=== PATIENT | female | born 1980 | race Caucasian/White ===

== ENCOUNTER 2018-05-27 16:21 | Emergency (ER) | payer SELFPAY ==
--- NOTE | 2018-05-27 16:23 | EDPHY ---
H & P Time Seen by Provider: 05/27/18 16:23 HPI/ROS: HPI CHIEF COMPLAINT: Nausea and vomiting. HISTORY OF PRESENT ILLNESS: Very pleasant 38-year-old female, otherwise healthy does not take any daily medications she presents emergency room nausea vomiting. She reports she has been vomiting for the past day. Since early this morning. She woke up with nausea vomiting. Diarrhea. Denies any chest pain or shortness of breath, denies fever. She states earlier in the day she had headache but is since resolved. Denies any headache at this time. Denies chest pain. Main complaint ongoing nausea. She arrives to the emergency room hyperventilating. She is nauseous. She has dry heaving. Main complaint ongoing nausea vomiting. Past Medical History: Denies significant medical history Past Surgical History: Surgical history is significant for tubal ligation and umbilical hernia repair. Social History: Denies daily use of drugs alcohol tobacco. Family History: Noncontributory ROS REVIEW OF SYSTEMS: 10 Systems were reviewed and negative with the exception of the elements mentioned in the history of present illness. Exam Constitutional nontoxic triage nursing summary reviewed, vital signs reviewed , awake/alert. Eyes normal conjunctivae and sclera, EOMI, PERRLA. HENT normal inspection, atraumatic, moist mucus membranes, no epistaxis, neck supple/ no meningismus, no raccoon eyes. Respiratory clear to auscultation bilaterally, normal breath sounds, no respiratory distress, no wheezing. Cardiovascular rate normal, regular rhythm, no murmur, no edema, distal pulses normal. Gastrointestinal soft, non-tender, no rebound, no guarding, normal bowel sounds, no distension, no pulsatile mass. Genitourinary no CVA tenderness. Musculoskeletal no midline vertebral tenderness, full range of motion, no calf swelling, no tenderness of extremities, no meningismus, good pulses, neurovascularly intact. Skin pink, warm, & dry, no rash, skin atraumatic. Neurologic awake, alert and oriented x 3, AAOx3, moves all 4 extremities equally, motor intact, sensory intact, CN II-XII intact, normal cerebellar, normal vision, normal speech. Psychiatric normal mood/affect. Heme/Lymph/Immune no lymphadenopathy. Differential Diagnosis: Includes but is not limited to in a particular order dehydration, electrolyte disturbance, acute nausea vomiting, gastritis, colitis , bowel obstruction, appendicitis, infection, UTI, . Medical Decision Making: Plan for this patient IV establishment, IV fluid bolus 2 L normal saline, basic blood work, IV Phenergan for nausea, IV Benadryl for nausea, urinalysis, re-evaluate. Re-evaluation: 1902: Patient re-evaluated this time resting comfortably abdomen is soft nontender. She feels much better after 2 L normal saline, as well as IV Benadryl IV Ativan IV Phenergan. Feeling much better. Nausea is well controlled she p.o. Challenge well here. Clinically most likely has some GI illness causing vomiting. We discussed return precautions he understands return emergency room she develops worsening abdominal pain, fever, vomiting. We did not perform CT imaging today as her abdomen is soft nontender I think appendicitis is very unlikely her blood work has been reviewed electrolytes appropriate, white count is normal. Urine does not indicate any UTI. Return precautions discussed with her and her at bedside. They are comfortable this plan she understands. Source: Patient - Personal History Tetanus Vaccine Date: 2010 - Medical/Surgical History Hx Asthma: Yes Hx Chronic Respiratory Disease: No Hx Diabetes: No Hx Cardiac Disease: No Hx Renal Disease: No Hx Cirrhosis: No Hx Alcoholism: No Hx HIV/AIDS: No Hx Splenectomy or Spleen Trauma: No Other PMH: ovarian cyst, blood clot in arm, umbilical hernia repair - Social History Smoking Status: Never smoked Constitutional: Initial Vital Signs Temperature (C) 36.4 C 05/27/18 16:23 Heart Rate 60 05/27/18 16:23 Respiratory Rate 22 H 05/27/18 16:23 Blood Pressure 113/81 H 05/27/18 16:23 O2 Sat (%) 100 05/27/18 16:23 O2 Delivery Mode Room Air Allergies/Adverse Reactions: egg [Egg] Allergy (Verified 01/19/16 17:06) Abdominal Cramping Home Medications: Medication Instructions Recorded Zofran 01/19/16 Promethazine HCl 25 mg PO Q6-8PRN PRN #7 tablet 05/27/18 Medical Decision Making - Data Points Laboratory Results: 05/27/18 05/27/18 05/27/18 16:43 16:35 16:35 POC Sodium 141 mEq/L mEq/L (135-145) POC Potassium 3.8 mEq/L mEq/L (3.3-5.0) POC Chloride 106.0 mEq/L mEq/L (97-110) POC Total CO2 21 mEq/L L mEq/L (22-31) POC BUN 11 mg/dL mg/dL (7-23) POC Creatinine 0.7 mg/dL mg/dL (0.6-1.0) POC Glucose 141 mg/dL H mg/dL (70-100) POC Calcium 10.2 mg/dL mg/dL (8.5-10.4) POC Total Bilirubin 1.0 mg/dL mg/dL (0.1-1.4) Total Bilirubin 0.9 mg/dL mg/dL (0.1-1.4) Conjugated Bilirubin 0.3 mg/dL mg/dL (0.0-0.5) Unconjugated Bilirubin 0.6 mg/dL mg/dL (0.0-1.1) POC AST 27 IU/L IU/L (14-46) AST 25 IU/L IU/L (14-46) POC ALT 17 IU/L IU/L (9-52) ALT 20 IU/L IU/L (9-52) POC Alk Phosphatase 76 IU/L IU/L (38-126) Alkaline Phosphatase 95 IU/L IU/L (38-126) POC Total Protein 8.0 g/dL g/dL (6.3-8.2) Total Protein 8.1 g/dL g/dL (6.3-8.2) POC Albumin 4.8 g/dL g/dL (3.5-5.0) Albumin 4.6 g/dL g/dL (3.5-5.0) Lipase 81 IU/L IU/L (23-300) Beta HCG, Qual NEGATIVE Medications Given: Discontinued Medications Diphenhydramine HCl (Benadryl Injection) 25 mg IVP EDNOW ONE Stop: 05/27/18 16:34 Last Admin: 05/27/18 16:38 Dose: 25 mg Diphenhydramine HCl (Benadryl Injection) 25 mg IVP EDNOW ONE Stop: 05/27/18 17:01 Last Admin: 05/27/18 17:08 Dose: 25 mg Sodium Chloride (Ns) 1,000 mls @ 0 mls/hr IV EDNOW ONE; Wide Open PRN Reason: Protocol Stop: 05/27/18 16:28 Last Admin: 05/27/18 16:35 Dose: 1,000 mls Sodium Chloride (Ns) 1,000 mls @ 0 mls/hr IV EDNOW ONE; Wide Open PRN Reason: Protocol Stop: 05/27/18 16:28 Last Admin: 05/27/18 17:08 Dose: 1,000 mls Lorazepam (Ativan Injection) 0.5 mg IVP EDNOW ONE Stop: 05/27/18 17:01 Last Admin: 05/27/18 17:08 Dose: 0.5 mg Promethazine HCl (Phenergan) 12.5 mg IVP EDNOW ONE Stop: 05/27/18 16:28 Last Admin: 05/27/18 16:36 Dose: 12.5 mg Point of Care Test Results: CBC CBC Collection Date 05/27/18 CBC Collection Time 16:35 WBC 13.3 RBC 4.81 HGB 14.6 HCT 40.5 PLT 311 Neut # 12.4 Neut 93.4 LYMPH # 0.7 LYMPH 5.3 Other WBC # 0.2 Other WBC 1.3 MCV 84.2 Chemistry 05/27/18 16:43 POC Sodium 141 mEq/L mEq/L (135-145) POC Potassium 3.8 mEq/L mEq/L (3.3-5.0) POC Chloride 106.0 mEq/L mEq/L (97-110) POC Total CO2 21 mEq/L L mEq/L (22-31) POC BUN 11 mg/dL mg/dL (7-23) POC Creatinine 0.7 mg/dL mg/dL (0.6-1.0) POC Glucose 141 mg/dL H mg/dL (70-100) POC Calcium 10.2 mg/dL mg/dL (8.5-10.4) POC Total Bilirubin 1.0 mg/dL mg/dL (0.1-1.4) POC AST 27 IU/L IU/L (14-46) POC ALT 17 IU/L IU/L (9-52) POC Alk Phosphatase 76 IU/L IU/L (38-126) POC Total Protein 8.0 g/dL g/dL (6.3-8.2) POC Albumin 4.8 g/dL g/dL (3.5-5.0) Urine Dip Collection Date 05/27/18 Collection Time 18:50 Specific [place] (1.002-1.030) 1.030 PH (5.0-7.5) 6.0 Leukocytes (Negative) Negative Nitrites (Negative) Negative Protein (Negative) 1+ Glucose (Negative) Negative Ketones (Negative) 2+ Urobilnogen (0.2-1.0 EU) 0.2 Bilirubin (Negative) Negative Blood (Negative) Negative Departure - Departure Disposition: Home, Routine, Self-Care Clinical Impression: Vomiting Qualifiers: Vomiting type: unspecified Vomiting Intractability: non-intractable Nausea presence: with nausea Qualified Code(s): R11.2 - Nausea with vomiting, unspecified Condition: Good Instructions: Acute Nausea and Vomiting (ED) Additional Instructions: 1. [place] diet over the next 24-48 hours no spicy fatty greasy foods. 2. Return emergency room if worsening symptoms Prescriptions: Promethazine HCl 25 mg PO Q6-8PRN PRN #7 tablet PRN Reason: Nausea/Vomiting, Use 1st
[2018-05-27] MEDS ORDERED: PROMETHAZINE HCL 25 MG/ML INJ IVP ONE (16:27)
[2018-05-27] MEDS ORDERED: NS 1,000 ML IV ONE ×2 (16:27)
[2018-05-27] MEDS ORDERED: LORazepam 2 MG/ML INJ IVP ONE (17:00)
[2018-05-27] MEDS ORDERED: LORazepam 2 MG/ML INJ ONE (17:31)
[2018-05-27] MEDS ORDERED: PROMETHAZINE HCL 25 MG TAB ONE (18:50)
[2018-05-27] MEDS ORDERED: PROMETHAZINE 25 MG PREPACK #4 BTL TAKEHOME ONE ×2 (19:13→19:31)
[2018-05-27 19:41] VITALS: BP 117/64
== END 2018-05-27 19:40 | disposition home or self-care (01) ==
LOC: CED 16:21
DX: R11.2 Nausea with vomiting, unspecified (principal); E86.9 Volume depletion, unspecified
CPT/HCPCS: 80053-PO; 80076-PO; 96374; J1200; J2060; J2550

== ENCOUNTER 2018-07-12 04:00 | Emergency (ER) | payer SELFPAY ==
[2018-07-12] MEDS ORDERED: ONDANSETRON 4 MG/2 ML VIAL IVP ONE (04:14)
[2018-07-12] MEDS ORDERED: LORazepam 0.5 MG TAB SL ONE (04:33)
[2018-07-12] MEDS ORDERED: NS 1,000 ML IV ONE ×2 (04:35)
[2018-07-12] MEDS ORDERED: PROMETHAZINE HCL 25 MG/ML INJ IVP ONE ×2 (04:37→06:22)
[2018-07-12] MEDS ORDERED: PANTOPRAZOLE SODIUM 40 MG VIAL IVP ONE (06:22)
--- NOTE | 2018-07-12 06:25 | EDPHY ---
H & P Stated Complaint: Nausea, vomiting, diarrhoea, back pain-3 days. Source: Patient - Personal History LMP (Females 10-55): 15-21 Days Ago Current Tetanus/Diphtheria Vaccine: Yes Current Tetanus Diphtheria and Acellular Pertussis (TDAP): Yes Tetanus Vaccine Date: 2010 - Medical/Surgical History Hx Asthma: Yes Hx Chronic Respiratory Disease: No Hx Diabetes: No Hx Cardiac Disease: No Hx Renal Disease: No Hx Cirrhosis: No Hx Alcoholism: No Hx HIV/AIDS: No Hx Splenectomy or Spleen Trauma: No Other PMH: ovarian cyst, blood clot in arm due to IV, umbilical hernia repair, asthma, tubal ligation, kidney stone - Family History Significant Family History: No pertinent family hx - Social History Smoking Status: Former smoker Alcohol Use: None Drug Use: None Time Seen by Provider: 07/12/18 04:19 HPI/ROS: CHIEF COMPLAINT: Nausea and vomiting with diarrhea HISTORY OF PRESENT ILLNESS: Approximately 48 hr ago she 1st awoke from a sound sleep with the illness. That particular 24. Was with approximately 10 episodes of diarrhea of formed brown nature without any blood. There is also moderate amounts of vomiting. The vomiting was bilious in nature. There really was no abdominal pain. Yesterday, she started feeling better, whereby there is no more diarrhea or vomiting. Thus by 4:00 p.m. She took some soup and went to bed. However she woke up again around 1-2 in the morning with repetitive episodes of vomiting with minimal diarrhea. The vomiting this point had some streaks of brown it. There is minimal diarrhea at this point. Two of the 3 children at home are sick with diarrhea although they were ill after she started. No recent exposure. No travel outside the country. No antibiotics. She reports using a single last leftover Zofran at home and was able keep it down as well as a Phenergan just this morning. Further, in December of 2015 she failed management here in the urgent care which consisted of IV Reglan and Phenergan having subsequently admitted at the nearby hospital, [facility] for 3 days without any specific diagnosis. REVIEW OF SYSTEMS: Constitutional: No fever, no chills. Eyes: No discharge ENT: Dry membranes. Cardiovascular: No chest pain, no palpitations. Respiratory: No cough, shortness of breath, or wheezing. Gastrointestinal: See above Genitourinary: There is no dysuria frequency. However she does have bilateral achiness in her sides. Musculoskeletal: Bilateral achiness in the sides Skin: No rashes. Neurological: No headache. [A 10 system review of systems was performed and is negative except for the noted findings in the HPI. (Sherif Gresham) - Physical Exam Exam: General Appearance: Alert, mild distress with repetitive retching and foamy yellow material in the basin. At that point when she was max retching she became diaphoretic. Afebrile. Normal phonation. No respiratory distress. Eyes: Pupils equal and round no pallor or injection. No icterus ENT, Mouth: Mucous membranes [moderately dry] Pharynx without erythema or exudate. TM Clear. Neck: No adenopathy. Supple. No JVD. Trachea in midline. Respiratory: There are no retractions, lungs are clear to auscultation. Cardiovascular: Regular rate and rhythm. Abdomen: Soft and nontender, no masses, bowel sounds normal. No CVA tenderness. Neurological: Ox3. No motor weakness. Sensation intact. Gait nl. Skin: Warm and dry, no rashes. Musculoskeletal: No joint swelling. Extremities: No edema. Homans sign negative. No cords. Psychiatric: Normal affect. [Patient is oriented X 3.] [There is no agitation ] (Sherif Gresham) Constitutional: Initial Vital Signs Temperature (C) 36.9 C 07/12/18 04:10 Heart Rate 81 07/12/18 04:10 Respiratory Rate 20 07/12/18 04:10 Blood Pressure 103/74 07/12/18 04:10 O2 Sat (%) 97 07/12/18 04:10 O2 Delivery Mode Room Air Allergies/Adverse Reactions: egg [Egg] Allergy (Verified 07/12/18 04:02) Abdominal Cramping Home Medications: Medication Instructions Recorded Zofran 01/19/16 Promethazine HCl 25 mg PO Q6-8PRN PRN #7 tablet 05/27/18 Ondansetron Odt [Zofran Odt 4 mg 4 mg PO Q4 PRN #12 tab 07/12/18 (*)] Medical Decision Making ED Course/Re-evaluation: I assumed care patient at 7:00 a.m.. On re-evaluation patient was feeling slightly better, with resolution of her akesthesia, and less nauseated but did say she thought she needed more anti nausea medicine. Her heart rate was noted to be up slightly. Given her persistent symptoms and tachycardia I elected to check her electrolytes. At additional dose of Benadryl and Haldol was ordered for her nausea and vomiting, but we lost IV access when drawing the blood for the lab work. On re-evaluation the patient because her nausea was improved she was willing to try oral fluids. On abdominal exam the patient's abdomen is soft , nondistended nontender. Patient denies marijuana use. Labs were noted for slightly low bicarb is slightly low chloride. Patient had received 2 L of normal saline. Urine was positive for ketones but no evidence of blood or infection. After receiving oral Benadryl on some ice water the pace at vomited again. She was ever given a dose of IM Haldol. On re-evaluation her nausea had improved. She was declining to try oral fluids again but said she was ready to go home. This point there is no evidence of significant surgical intra-abdominal process and patient has been rehydrated. We discussed home care return precautions including but not limited to inability to take fluids or medications. Patient is encouraged to come back if she is not improving or getting worse. Patient and her brother understand agreeable to this plan. (Tu Velazqueza) Initially she was difficult to start an IV on. Thereby she was given Ativan 0 5 mg sublingual in view of her being so petite at 4 ft 11. Subsequent months an IV established she was given 2 L of fluids as well as Benadryl 25 mg and Phenergan 12.5 mg. However, she continued to be nauseated. She reported having trouble sitting still which I attributed to the Phenergan however she attributed to the Benadryl. She is given a 2nd round of the Phenergan 12.5 mg. She was moderately sedated at that point in time. She continues to feel agitated and difficult to get settled. We discussed having a little bit more Ativan 0.5 mg in hopes to help things. Case discussed with oncoming physician at 7:00 a.m. Who assumed care (Sherif Gresham) Differential Diagnosis: Differential diagnosis includes, but is not limited to: Gastroenteritis, dehydration, diverticulitis, hepatitis, pancreatitis, renal colic, kidney stones, ureterolithiasis, cholecystitis, appendicitis, gastritis, mesenteric adenitis, food poisoning, bacterial dysentery. (Sherif Gresham) - Data Points Medications Given: Discontinued Medications Diphenhydramine HCl (Benadryl Injection) 25 mg IVP EDNOW ONE Stop: 07/12/18 04:41 Last Admin: 07/12/18 05:05 Dose: 25 mg Diphenhydramine HCl (Benadryl) 50 mg PO EDNOW ONE Stop: 07/12/18 08:09 Last Admin: 07/12/18 08:11 Dose: 50 mg Haloperidol Lactate (Haldol Injection) 2.5 mg IM Q6HRS PRN PRN Reason: Agitation Stop: 01/08/19 08:44 Last Admin: 07/12/18 08:53 Dose: 2.5 mg Sodium Chloride (Ns) 1,000 mls @ 0 mls/hr IV EDNOW ONE; As Directed PRN Reason: Protocol Stop: 07/12/18 04:36 Last Admin: 07/12/18 05:05 Dose: 1,000 mls Sodium Chloride (Ns) 1,000 mls @ 0 mls/hr IV EDNOW ONE; As Directed PRN Reason: Protocol Stop: 07/12/18 04:36 Last Admin: 07/12/18 04:49 Dose: 1,000 mls Lorazepam (Ativan) 0.5 mg SL EDNOW ONE Stop: 07/12/18 04:34 Last Admin: 07/12/18 04:35 Dose: 0.5 mg Ondansetron HCl (Zofran) 4 mg IVP EDNOW ONE Stop: 07/12/18 04:15 Last Admin: 07/12/18 04:49 Dose: 4 mg Pantoprazole Sodium (Protonix) 40 mg IVP EDNOW ONE Stop: 07/12/18 06:23 Last Admin: 07/12/18 06:27 Dose: 40 mg Promethazine HCl (Phenergan) 12.5 mg IVP ONCE ONE Stop: 07/12/18 04:38 Last Admin: 07/12/18 05:39 Dose: 12.5 mg Promethazine HCl (Phenergan) 12.5 mg IVP ONCE ONE Stop: 07/12/18 06:23 Last Admin: 07/12/18 06:26 Dose: 12.5 mg Point of Care Test Results: Chemistry 07/12/18 07:36 POC Sodium 140 mEq/L mEq/L (135-145) POC Potassium 3.5 mEq/L mEq/L (3.3-5.0) POC Chloride 112.0 mEq/L H mEq/L (97-110) POC Total CO2 20 mEq/L L mEq/L (22-31) POC BUN 9 mg/dL mg/dL (7-23) POC Creatinine 0.8 mg/dL mg/dL (0.6-1.0) POC Glucose 108 mg/dL H mg/dL (70-100) POC Calcium 9.1 mg/dL mg/dL (8.5-10.4) POC Total Bilirubin 0.8 mg/dL mg/dL (0.1-1.4) POC AST 23 IU/L IU/L (14-46) POC ALT 14 IU/L IU/L (9-52) POC Alk Phosphatase 63 IU/L IU/L (38-126) POC Total Protein 6.3 g/dL g/dL (6.3-8.2) POC Albumin 3.5 g/dL g/dL (3.5-5.0) Urine Dip Collection Date 07/12/18 Collection Time 06:23 Specific [place] (1.002-1.030) 1.025 PH (5.0-7.5) 6.0 Leukocytes (Negative) Negative Nitrites (Negative) Negative Protein (Negative) 1+ Glucose (Negative) Negative Ketones (Negative) 2+ Urobilnogen (0.2-1.0 EU) 0.2 Bilirubin (Negative) Test Not Performed Blood (Negative) Trace Departure - Departure Disposition: Home, Routine, Self-Care Clinical Impression: Nausea & vomiting Qualifiers: Vomiting type: unspecified Vomiting Intractability: non-intractable Qualified Code(s): R11.2 - Nausea with vomiting, unspecified Condition: Good Instructions: Acute Nausea and Vomiting (ED) Additional Instructions: You were seen by Dr. Sapphire Velazquez today. We have treated you for nausea and vomiting today. You may continue to take Zofran 4 mg every 8 hr as needed for nausea and vomiting. You had a reaction to Phenergan. If the symptoms of restlessness, discomfort and heebie-jeebies continue at home, you may take Benadryl 25 mg by mouth every 4 hr. Please follow up with her primary care physician. Return for any worsening, no improvement or new concerns. Referrals: NONE *PRIMARY CARE P,. [Unknown] - As per Instructions Prescriptions: Ondansetron Odt [Zofran Odt 4 mg (*)] 4 mg PO Q4 PRN #12 tab PRN Reason: Nausea and vomiting
[2018-07-12] MEDS ORDERED: HALOPERIDOL LACT 5 MG/ML INJ IVP ONE (07:10)
[2018-07-12] MEDS ORDERED: diphenhydrAMINE 25 MG CAP PO ONE (08:08)
[2018-07-12] MEDS ORDERED: HALOPERIDOL LACT 5 MG/ML INJ IM PRN (08:45)
[2018-07-12 09:51] VITALS: BP 126/80
== END 2018-07-12 09:48 | disposition home or self-care (01) ==
LOC: CED 04:00
DX: R11.2 Nausea with vomiting, unspecified (principal); E86.9 Volume depletion, unspecified
CPT/HCPCS: 80053-PO; 96374; J1200; J1630; J2405; J2550

== ENCOUNTER 2018-09-05 20:43 | Emergency (ER) | payer OTHER ==
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
[2018-09-05] MEDS ORDERED: NS 1,000 ML IV ONE ×2 (21:06→23:08)
[2018-09-05] MEDS ORDERED: LORazepam 2 MG/ML INJ IVP ONE ×2 (21:29→22:06)
[2018-09-05] MEDS ORDERED: HALOPERIDOL LACT 5 MG/ML INJ IVP ONE (21:30)
--- NOTE | 2018-09-05 22:34 | CPEKG ---
Test Reason : OPEN Blood Pressure : / mmHG Vent. Rate : 068 BPM Atrial Rate : 060 BPM P-R Int : 111 ms QRS Dur : 075 ms QT Int : 393 ms P-R-T Axes : 069 059 058 degrees QTc Int : 418 ms Sinus rhythm Confirmed by Sherif Gresham ([id number]) on 09/05/2018 10:34:02 PM Referred By: Sherif Gresham Confirmed By:Sherif Gresham
[2018-09-05] MEDS ORDERED: PROMETHAZINE 25 MG PREPACK #4 BTL TAKEHOME ONE (22:54)
[2018-09-05] MEDS ORDERED: LORAZEPAM 1 MG PREPACK#4 BTL TAKEHOME ONE (22:54)
[2018-09-06 00:36] VITALS: BP 111/74
== END 2018-09-06 00:36 | disposition home or self-care (01) ==
LOC: CED 20:43
DX: G43.A1 Cyclical vomiting, in migraine, intractable (principal)
CPT/HCPCS: 80048-ER; 83605-ER; 96361-ER; 96374-ER; 96375-ER; 96376-ER; 99284-ER; J1200; J1630; J2060

== ENCOUNTER 2018-09-30 20:12 | Emergency (ER) | payer SELFPAY, OTHER | END 2018-09-30 23:06 | disposition home or self-care (01) | LOC: CED 20:12 ==

== ENCOUNTER 2018-10-02 22:59 | Emergency (ER) | payer SELFPAY ==
[2018-10-02] MEDS ORDERED: NS 1,000 ML IV ONE (23:20)
[2018-10-02] MEDS ORDERED: LORazepam 2 MG/ML INJ IVP ONE (23:58)
[2018-10-02] MEDS ORDERED: HALOPERIDOL LACT 5 MG/ML INJ IVP ONE (23:58)
[2018-10-03] MEDS ORDERED: ONDANSETRON DISINTEGRATING 4 MG TAB PO ONE (01:20)
[2018-10-03] MEDS ORDERED: POTASSIUM CL 20 MEQ/15 ML UDCUP PO ONE (01:21)
[2018-10-03] MEDS ORDERED: ONDANSETRON 4MG PREPACK#2 BTL TAKEHOME ONE (01:42)
--- NOTE | 2018-10-03 01:47 | EDPHY ---
H & P Stated Complaint: N/V/D x3 days Time Seen by Provider: 10/02/18 23:06 HPI/ROS: CC: n/v/d x 3 days HPI: This 38-year-old female with past medical history of cyclic vomiting of unknown origin presents today with her complaining of nausea, vomiting and a few episodes of diarrhea over the last 3 days. She has been taking Phenergan and Zofran without significant relief. It will help for short time but then the symptoms were return. She feels like she has to vomit every time she has anything to eat or drink. She has an aching epigastric pain that she rates it 4/10 at rest but it increases to 7/10 after oral intake. She denies fever but has had some chills. The diarrhea is nonbloody and she has not noticed blood in the emesis. She has not seen a carpenter rough and states she does not use marijuana on a regular basis and no etiology has been identified for the cyclic vomiting. No ill contacts. REVIEW OF SYSTEMS: Constitutional: No fever. Eyes: No discharge. ENT: No sore throat. Respiratory: No cough, no shortness of breath. Cardiac: No chest pain, no palpitations. Gastrointestinal: Mild suprapubic discomfort. See HPI. Genitourinary: No dysuria Musculoskeletal: No back pain. Skin: No rashes. Neurological: No headache. Source: Patient, Family - Personal History LMP (Females 10-55): 15-21 Days Ago Current Tetanus/Diphtheria Vaccine: Yes Current Tetanus Diphtheria and Acellular Pertussis (TDAP): Yes Tetanus Vaccine Date: 2010 - Medical/Surgical History PMH: Past medical history includes dermoid cyst of her right ovary, DVT right arm, asthma, cyclic vomiting syndrome. Past surgical history includes tubal ligation and repair of umbilical hernia. Family history includes her mother being alive at age 57 with a history of breast cancer, depression and migraine headaches. Her father is at the age of 60 and had congestive heart failure, migraine headaches, depression, chronic pain and bipolar disorder. No known drug allergies Medications include occasional albuterol Primary care provider is the Carla Dejesus and she has an appointment at 10: 00 a.m. On Monday of this week. Hx Asthma: Yes Hx Chronic Respiratory Disease: No Hx Diabetes: No Hx Cardiac Disease: No Hx Renal Disease: No Hx Cirrhosis: No Hx Alcoholism: No Hx HIV/AIDS: No Hx Splenectomy or Spleen Trauma: No Other PMH: ovarian cyst, blood clot in arm due to IV, umbilical hernia repair, asthma, tubal ligation, kidney stone - migraine, typically she takes ibuprofen. - Social History Smoking Status: Former smoker Additional Social History: The patient is . She denies tobacco use. She has occasional alcohol and occasionally uses marijuana. Her last marijuana use it was 2 weeks ago. - Physical Exam Exam: General Appearance: Alert, mild distress. Eyes: Pupils equal and round no pallor or injection. ENT, Mouth: Mucous membranes are moist. Respiratory: There are no retractions, lungs are clear to auscultation. Cardiovascular: Regular rate and rhythm. Gastrointestinal: Abdomen is soft with mild epigastric and suprapubic tenderness. No masses. No rebound, guarding, or rigidity. Bowel sounds normal. Neurological: Awake and alert, sensory and motor exams grossly normal. Skin: Warm and dry, no rashes. Musculoskeletal: Neck is supple and nontender. Extremities are symmetrical, full range of motion. Psychiatric: Patient is oriented X 3, there is no agitation. DIFFERENTIAL DIAGNOSIS: After history and physical exam differential diagnosis was considered for but not limited to and in no particular order: [Cyclic vomiting syndrome, viral syndrome, gastroenteritis, cholecystitis, biliary colic , pancreatitis, bowel obstruction, appendicitis, , food-borne illness, dehydration, electrolyte disorder.] Constitutional: Initial Vital Signs Temperature (C) 98.4 F 10/02/18 23:09 Heart Rate 75 10/02/18 23:09 Respiratory Rate 18 10/02/18 23:09 Blood Pressure 125/67 H 10/02/18 23:09 O2 Sat (%) 98 10/02/18 23:09 O2 Delivery Mode Room Air Allergies/Adverse Reactions: avocado Allergy (Verified 10/02/18 23:11) egg [Egg] Allergy (Verified 10/02/18 23:00) Abdominal Cramping Home Medications: Medication Instructions Recorded Albuterol 10/02/18 Medical Decision Making ED Course/Re-evaluation: The patient was seen examined. Vital signs reviewed. Prior charts reviewed. She was given a L of IV fluids as well as Benadryl 25 mg IV push, Haldol 2.5 mg IV push, and Ativan 1 mg IV push. This quickly alleviated her symptoms. Her complete blood count, comprehensive metabolic panel, lipase, lactic acid, urine and UCG were negative with the exception of a slightly low potassium (3.2) on the chemistry panel. The patient was advised to increase potassium containing foods in her diet. She was advised to follow up with her primary care provider and consider a gastroenterology consult. I see no need for imaging this evening but the patient was advised to return to the emergency room should symptoms change or worsen as discussed. She was given a Nymirumfran take-home pack to use as directed. - Data Points Laboratory Results: Laboratory Results 10/02/18 23:33 Medications Given: Discontinued Medications Diphenhydramine HCl (Benadryl Injection) 25 mg IVP EDNOW ONE Stop: 10/02/18 23:59 Last Admin: 10/03/18 00:10 Dose: 25 mg Haloperidol Lactate (Haldol Injection) 2.5 mg IVP EDNOW ONE Stop: 10/02/18 23:59 Last Admin: 10/03/18 00:10 Dose: 2.5 mg Sodium Chloride (Ns) 1,000 mls @ 0 mls/hr IV ONCE ONE; Wide Open PRN Reason: Protocol Stop: 10/02/18 23:21 Last Admin: 10/02/18 23:31 Dose: 1,000 mls Lorazepam (Ativan Injection) 1 mg IVP EDNOW ONE Stop: 10/02/18 23:59 Last Admin: 10/03/18 00:10 Dose: 1 mg Ondansetron HCl (Zofran Odt) 4 mg PO EDNOW ONE Stop: 10/03/18 01:21 Last Admin: 10/03/18 01:24 Dose: 4 mg Ondansetron HCl (Zofran Odt 4 Mg Prepack#2) 1 btl TAKEHOME EDNOW ONE Stop: 10/03/18 01:43 Last Admin: 10/03/18 02:02 Dose: 1 btl Potassium Chloride (Potassium Chloride Oral Liquid) 20 meq PO EDNOW ONE Stop: 10/03/18 01:22 Last Admin: 10/03/18 01:43 Dose: Not Given Point of Care Test Results: CBC CBC Collection Date 10/02/18 CBC Collection Time 23:32 WBC 10.63 RBC 5.27 HGB 15.3 HCT 43.8 PLT 175 Neut # 8.17 Neut 76.8 LYMPH # 1.52 LYMPH 14.3 MCV 83.1 Chemistry 10/03/18 10/03/18 01:00 00:27 POC Sodium 138 mEq/L mEq/L 135 mEq/L mEq/L (135-145) (135-145) POC Potassium 2.9 mEq/L L mEq/L 2.6 mEq/L L* mEq/L (3.3-5.0) (3.3-5.0) POC Chloride 103 mEq/L mEq/L 106.0 mEq/L mEq/L (97-110) (97-110) POC Total CO2 23 mEq/L mEq/L 24 mEq/L mEq/L (22-31) (22-31) POC BUN < 3 mg/dL L mg/dL 5 mg/dL L mg/dL (7-23) (7-23) POC Creatinine 0.7 mg/dL mg/dL 0.9 mg/dL mg/dL (0.6-1.0) (0.6-1.0) POC Glucose 98 mg/dL mg/dL 103 mg/dL H mg/dL (70-100) (70-100) POC Calcium 9.5 mg/dL mg/dL (8.5-10.4) POC Total Bilirubin 0.8 mg/dL mg/dL (0.1-1.4) POC AST 21 IU/L IU/L (14-46) POC ALT 10 IU/L IU/L (9-52) POC Alk Phosphatase 58 IU/L IU/L (38-126) POC Total Protein 6.4 g/dL g/dL (6.3-8.2) POC Albumin 3.8 g/dL g/dL (3.5-5.0) Blood Gas/Lactic Acid-Arterial 10/03/18 10/03/18 00:32 00:52 POC Blood Source VENOUS VENOUS Blood Gas/Lactic Acid-Venous 10/03/18 10/03/18 00:52 00:32 POC VBG pH 7.48 H 7.47 H (7.31-7.42) (7.31-7.42) POC VBG pCO2 30 mmHg L mmHg 29 mmHg L mmHg (40-44) (40-44) POC VBG pO2 115 mmHg H mmHg 105 mmHg H mmHg (35-40) (35-40) POC VBG HCO3 22 mEq/L mEq/L 21 mEq/L L mEq/L (22-26) (22-26) POC VBG Total CO2 23 mEq/L mEq/L 22 mEq/L mEq/L (21-27) (21-27) POC VBG Base Excess -2.0 mEq/L mEq/L -2.0 mEq/L mEq/L (-2.5-2.5) (-2.5-2.5) POC Mix VBG O2 Sat 99 % H % 98 % H % (65-75) (65-75) POC Lactic Acid Pal 1.5 mmol/L D mmol/L 1.2 mmol/L D mmol/L (0.7-2.1) (0.7-2.1) ISTAT H&H 10/03/18 01:00 POC Hgb 11.2 gm/dL L gm/dL (12.6-16.3) POC Hct 33 % L % (38-47) Urine Collection Date 10/03/18 Collection Time 00:38 HCG Results Negative Urine Dip Collection Date 10/03/18 Collection Time 00:38 Specific [place] (1.002-1.030) 1.010 PH (5.0-7.5) 7.0 Leukocytes (Negative) Negative Nitrites (Negative) Negative Protein (Negative) Negative Glucose (Negative) Negative Ketones (Negative) Negative Urobilnogen (0.2-1.0 EU) 0.2 Bilirubin (Negative) Negative Blood (Negative) Negative Departure - Departure Disposition: Home, Routine, Self-Care Clinical Impression: Nausea & vomiting, Hypokalemia, gastrointestinal losses Condition: Good Instructions: Hypokalemia (ED), Acute Nausea and Vomiting (ED) Additional Instructions: Follow up with your primary care provider within the next few days. Ask if a referral to a carpenter rough would be reasonable at this time due to multiple episodes/ER visits for nausea and vomiting. Remember to increase the potassium containing foods in your diet for the next few days. Return to the ER if symptoms change or worsen or any other concerns. Referrals: Patient,NotPresent [Primary Care Provider] - As per Instructions
[2018-10-03 02:07] VITALS: BP 116/72
== END 2018-10-03 02:07 | disposition home or self-care (01) ==
LOC: CED 22:59
DX: R11.2 Nausea with vomiting, unspecified (principal); E87.6 Hypokalemia; E86.9 Volume depletion, unspecified; Z87.891 Personal history of nicotine dependence
CPT/HCPCS: 80053-ER; 82435-PO; 82565-PO; 82947-PO; 83605-ER; 84132-PO; 84295-PO; 84520-PO; 85014-ER; 96361-ER; 96374-ER; 96375-ER; 99284-ER; J1200; J1630; J2060